=== PATIENT | male | born 1950 | race Caucasian/White ===

== ENCOUNTER 2019-04-05 10:55 | Emergency (ER) | payer OTHER ==
--- NOTE | 2019-04-05 11:44 | ED ---
Adult Trauma - HPI Summary HPI Summary: This patient is a 68-year-old otherwise healthy male presenting to the ED with a probable syncopal episode lasting approximately 2 seconds 1.5 hours prior to arrival. This happened admitting and 10 and he was able to be seen at the [place] clinic who completed an EKG and sent him here for further evaluation of the CT scan. He states when he fell, he tripped after believing he may have "passed out" for approximately 2 seconds, then hitting his head. He denies any LOC after head injury. He denies any headache, visual change, confusion, memory loss. He states he had blood work completed 2 weeks ago including cardiac workup which was normal. He states he has had several episodes of syncope in the past with full workups but nothing has shown anything. He does admit to not having breakfast prior to this episode which has caused him to have these in the past. Denies any symptoms currently, but endorses large cephalohematoma to the L forehead. Also small abrasion to the L eyebrow. Denies weakness, dizziness, CP, SOB or ALEJANDRE. - History of Current Complaint Chief Complaint: EDFall Stated Complaint: FALL FACIAL INJURY Time Seen by Provider: 04/05/19 11:20 Hx Obtained From: Patient Mechanism of Injury: Fall Ambulatory at the Scene: Yes Loss of Consciousness: brief (seconds) - 2 seconds approx Onset/Duration: Started Hours Ago Onset of Pain: Immediate Onset Severity: Mild Current Severity: None Pain Intensity: 0 Pain Scale Used: 0-10 Numeric Location: Head Character: Aching Aggravating Factor(s): Nothing Alleviating Factor(s): Nothing Associated Signs & Symptoms: Positive: Negative - Allergy/Home Medications Allergies/Adverse Reactions: Allergies Allergy/AdvReac Type Severity Reaction Status Date / Time No Known Allergies Allergy Verified 04/05/19 11:04 PMH/Surg Hx/FS Hx/Imm Hx Previously Healthy: Yes - Immunization History Hx Pertussis Vaccination: No Immunizations Up to Date: Yes Infectious Disease History: No Infectious Disease History: Denies: Traveled Outside the [place] in Last 30 Days - Social History Occupation: Unemployed Lives: Alone Alcohol Use: None Hx Substance Use: No Substance Use Type: Reports: None Hx Tobacco Use: No Smoking Status (MU): Never Smoked Tobacco Review of Systems Negative: Fever, Chills, Fatigue, Skin Diaphoresis Negative: Palpitations, Chest Pain Negative: Shortness Of Breath, Cough Genitourinary: Negative Positive: no symptoms reported, see HPI Negative: Arthralgia, Myalgia Skin: Negative Neurological: Negative All Other Systems Reviewed And Are Negative: Yes Physical Exam Triage Information Reviewed: Yes Vital Signs On Initial Exam: Initial Vitals Temp Pulse Resp BP Pulse Ox 98.3 F 70 16 140/83 98 04/05/19 10:58 04/05/19 10:58 04/05/19 10:58 04/05/19 10:58 04/05/19 10:58 Vital Signs Reviewed: Yes Appearance: Positive: Well-Appearing, Well-Nourished Skin: Positive: Warm, Skin Color Reflects Adequate Perfusion, Other - left sided hematoma Head/Face: Positive: Normal Head/Face Inspection Eyes: Positive: EOMI, VIJAY, Conjunctiva Clear Neck: Positive: Supple, No Lymphadenopathy Respiratory/Lung Sounds: Positive: Clear to Auscultation, Breath Sounds Present Cardiovascular: Positive: RRR, Pulses are Symmetrical in both Upper and Lower Extremities Musculoskeletal: Positive: Normal, Strength/ROM Intact Neurological: Positive: Speech Normal Psychiatric: Positive: Affect/Mood Appropriate AVPU Assessment: Alert Diagnostics - Vital Signs Vital Signs Temp Pulse Resp BP Pulse Ox 04/05/19 10:58 98.3 F 70 16 140/83 98 - Laboratory Lab Statement: Any lab studies that have been ordered have been reviewed, and results considered in the medical decision making process. Adult Trauma Course/Dx - Course Course Of Treatment: During the course of treatment, the patient's evaluated for a recent fall approximately 1.5 hours ago. He denies any symptoms currently. He states he may have had a syncopal episode lasting approximately 2 seconds. He states he has had this several times in the past, has had full workups with no findings. Recent labs were obtained 2 weeks ago including a cardiac workup all of which was negative. EKG was performed at the [place] clinic in which she was seen about 1 hour ago and was normal. He was seen here for a CT. He denies any symptoms currently. Cephalhematoma noted to the left side. No nystagmus noted. No weakness. No gait abnormalities. Patient states he feels 100%. Small abrasion noted to the left eyebrow. CT brain obtained: Shows no intracranial abnormalities. Pt feeling well and denies any complaints at this time. - Diagnoses Differential Diagnosis/HQI/PQRI: Positive: Abrasion(s), Contusion(s), Hematoma(s ) Provider Diagnoses: Hematoma Discharge ED - Sign-Out/Discharge Documenting (check all that apply): Patient Departure Patient Received Moderate/Deep Sedation with Procedure: No - Discharge Plan Condition: Stable Disposition: HOME Patient Education Materials: Head Injury (ED) Referrals: Piper Pastor [Primary Care Provider] - Additional Instructions: Continue follow up at [place] clinic. If you develop any worsening symptoms, return to the ED - Billing Disposition and Condition Condition: STABLE Disposition: Home
[2019-04-05 12:49] VITALS: BP 112/73
== END 2019-04-05 12:51 | disposition home or self-care (01) ==
LOC: ED 10:55
DX: S00.12XA Contusion of left eyelid and periocular area, initial encounter (principal); W01.0XXA Fall on same level from slipping, tripping and stumbling without subsequent striking against object, initial encounter; Y92.9 Unspecified place or not applicable
CPT/HCPCS: 70450; 99282

== ENCOUNTER 2019-04-06 10:40 | Emergency (ER) | payer OTHER ==
[2019-04-06 12:20] VITALS: BP 125/84
--- NOTE | 2019-04-06 12:23 | ED ---
Skin Complaint - HPI Summary HPI Summary: This patient is a 68-year-old male presenting to the ED with left eye ecchymosis. He states he fell yesterday and was seen here in the ED. A CT brain was obtained which shows no intracranial abnormalities. Upon awakening this morning, he states he had some ecchymosis to left eye without swelling. Several hours later he said that ecchymosis was worse. He was able to call the [place] clinic who sent him here for further evaluation of the black eye. He denies any pain to the area. He continues to deny any headache, confusion, memory loss. - History of Current Complaint Chief Complaint: EDEyeProblem Time Seen by Provider: 04/06/19 10:54 Stated Complaint: LT EYE BLACK FROM FALL PER PT Hx Obtained From: Patient Onset/Duration: Started Hours Ago Skin Exposure Onset/Duration: Hours Ago Timing: Constant Onset Severity: Mild Current Severity: Mild Pain Intensity: 0 Pain Scale Used: 0-10 Numeric Skin Location: Discrete - left eye Aggravating Symptom(s): Nothing Alleviating Symptom(s): Nothing Associated Signs & Symptoms: Negative - Allergy/Home Medications Allergies/Adverse Reactions: Allergies Allergy/AdvReac Type Severity Reaction Status Date / Time No Known Allergies Allergy Verified 04/05/19 11:04 PMH/Surg Hx/FS Hx/Imm Hx Previously Healthy: Yes - Immunization History Hx Pertussis Vaccination: No Immunizations Up to Date: Yes Infectious Disease History: No Infectious Disease History: Denies: Traveled Outside the [place] in Last 30 Days - Social History Occupation: Unemployed Lives: Alone Alcohol Use: None Hx Substance Use: No Substance Use Type: Reports: None Hx Tobacco Use: No Smoking Status (MU): Never Smoked Tobacco Review of Systems Constitutional: Negative Negative: Fever, Chills, Fatigue, Skin Diaphoresis Negative: Palpitations, Chest Pain Negative: Shortness Of Breath, Cough Positive: see HPI Negative: Arthralgia, Myalgia Positive: Bruising Neurological: Negative Negative: Headache, Weakness, Paresthesia, Numbness All Other Systems Reviewed And Are Negative: Yes Physical Exam Triage Information Reviewed: Yes Vital Signs On Initial Exam: Initial Vitals Temp Pulse Resp BP Pulse Ox 97.5 F 75 16 128/89 98 04/06/19 10:44 04/06/19 10:44 04/06/19 10:44 04/06/19 10:44 04/06/19 10:44 Vital Signs Reviewed: Yes Appearance: Positive: Well-Appearing, Well-Nourished Skin: Positive: Warm, Other - ecchymosis to the upper eyelid Head/Face: Positive: Normal Head/Face Inspection Eyes: Positive: EOMI, VIJAY, Conjunctiva Clear Neck: Positive: Supple, Nontender Respiratory/Lung Sounds: Positive: Clear to Auscultation, Breath Sounds Present Cardiovascular: Positive: RRR, Pulses are Symmetrical in both Upper and Lower Extremities Musculoskeletal: Positive: Normal, Strength/ROM Intact Neurological: Positive: Speech Normal Psychiatric: Positive: Affect/Mood Appropriate Diagnostics - Vital Signs Vital Signs Temp Pulse Resp BP Pulse Ox 04/06/19 10:44 97.5 F 75 16 128/89 98 - Laboratory Lab Statement: Any lab studies that have been ordered have been reviewed, and results considered in the medical decision making process. Course/Dx - Course Course Of Treatment: During the course of treatment, patient is evaluated for ecchymosis left eye following a fall yesterday. He denies any swelling or pain. He states he was sent here from the [place] clinic to reevaluate the ecchymosis. He denies the use blood thinners. Physical examination, there is a small amount of ecchymosis to the upper lid of the left eye without swelling. No occlusion to the eye. No eye entrapment noted. No conjunctival injection or hemorrhage. Patient will be discharged with hematoma. - Diagnoses Provider Diagnoses: Hematoma Discharge ED - Sign-Out/Discharge Documenting (check all that apply): Patient Departure Patient Received Moderate/Deep Sedation with Procedure: No - Discharge Plan Condition: Stable Disposition: HOME Patient Education Materials: Hematoma (ED) Referrals: Piper Pastor [Primary Care Provider] - Additional Instructions: Ice to the area may help with swelling and blood pooling - Billing Disposition and Condition Condition: STABLE Disposition: Home
== END 2019-04-06 12:18 | disposition home or self-care (01) ==
LOC: ED 10:40
DX: S00.12XA Contusion of left eyelid and periocular area, initial encounter (principal); W19.XXXA Unspecified fall, initial encounter; Y92.9 Unspecified place or not applicable
CPT/HCPCS: 99282

== ENCOUNTER 2022-03-03 15:10 | Inpatient (IN) ==
[2022-03-03] MEDS ORDERED: Morphine 4 MG/ML VIAL (1 ml) IV ONE ×2 (15:29→17:21)
[2022-03-03 16:44] LABS: ABS Basophils 0.1 10^3/ul (0-0.2); ABS Eosinophils 0.4 10^3/ul (0-0.6); ABS Lymphocytes 1.2 10^3/ul (1.0-4.8); ABS Monocytes 0.5 10^3/ul (0-0.8); ABS Neutrophils 5.3 10^3/ul (1.5-7.7); Eosinophil % 5.1 %; Hematocrit 40 % (42-52); Hemoglobin 13.4 g/dL (14.0-18.0); Lymphocyte % 16.5 %; Mean Corpuscular HGB Conc 33 g/dL (31-36); Mean Corpuscular Hemoglobin 32 pg (27-31); Mean Corpuscular Volume 95 fL (80-94); Mean Platelet Volume 8.3 fL (7.4-10.4); Nucleated Red Blood Cells % 0.1; Platelet Count 223 10^3/uL (150-450); Red Blood Count 4.22 10^6 /uL (4.18-5.48); Red Cell Distribution Width 15 % (10-15); White Blood Count 7.5 10^3/uL (3.5-10.8)
[2022-03-03 17:24] LABS: Albumin 4.2 g/dL (3.2-5.2); Albumin/Globulin Ratio 1.9 (1-3); Calcium 9.3 mg/dL (8.6-10.3); Globulin 2.2 g/dL (2-4); Potassium 4.5 mmol/L (3.5-5.0); Total Bilirubin 1.3 mg/dL (0.2-1.0); Total Protein 6.4 g/dL (6.4-8.9); eGFR CKD-EPI 52.6 (>60)
[2022-03-03] MEDS ORDERED: Iodixanol (CONTRAST) 320 MG/ML 100 ML SDV IV ONE (17:41)
[2022-03-03 20:26] LABS: Urine Appearance Clear; Urine Bilirubin Negative (Negative); Urine Blood Negative (Negative); Urine Color Yellow; Urine Glucose Negative (Negative); Urine Ketones Negative (Negative); Urine Nitrite Negative (Negative); Urine Protein Negative (Negative); Urine Urobilinogen 0.2 (Negative) (Negative); Urine pH 6.5 (5.0-9.0)
[2022-03-03] MEDS ORDERED: BETAMETHASONE DIPROPIONATE 0.05% TOPICAL PRN (20:39)
[2022-03-03] MEDS: dilTIAZem 30 MG TAB PO SCH (22:22)
[2022-03-03] MEDS: Heparin 5000 UNITS/ML 1 mL VIAL SUBCUT SCH (22:25)
[2022-03-04] MEDS: Mometasone/Formoter 100/5 MDI INH SCH ×3 (01:17→20:07)
[2022-03-04 04:34] LABS: Hematocrit 39 % (42-52); Hemoglobin 12.9 g/dL (14.0-18.0)
[2022-03-04 04:54] LABS: Hepatitis C Antibody Negative (Negative)
[2022-03-04 05:07] LABS: Calcium 9.3 mg/dL (8.6-10.3); Potassium 4.3 mmol/L (3.5-5.0)
[2022-03-04 06:59] LABS: ABS Basophils 0.1 10^3/ul (0-0.2); ABS Eosinophils 0.5 10^3/ul (0-0.6); ABS Lymphocytes 0.7 10^3/ul (1.0-4.8); ABS Monocytes 0.5 10^3/ul (0-0.8); ABS Neutrophils 3.9 10^3/ul (1.5-7.7); Eosinophil % 8.4 %; Hematocrit 36 % (42-52); Hemoglobin 12.2 g/dL (14.0-18.0); Lymphocyte % 13.3 %; Mean Corpuscular HGB Conc 34 g/dL (31-36); Mean Corpuscular Hemoglobin 33 pg (27-31); Mean Corpuscular Volume 96 fL (80-94); Mean Platelet Volume 8.5 fL (7.4-10.4); Platelet Count 189 10^3/uL (150-450); Red Blood Count 3.72 10^6 /uL (4.18-5.48); Red Cell Distribution Width 14 % (10-15); White Blood Count 5.6 10^3/uL (3.5-10.8)
[2022-03-04] MEDS: Heparin 5000 UNITS/ML 1 mL VIAL SUBCUT SCH (09:36)
[2022-03-04] MEDS ORDERED: Heparin DRIP 25,000 UNITS BAG 25,000 UNITS/500 ML BAG IV SCH (10:15)
[2022-03-04 10:19] LABS: ABS Eosinophils 0.5 10^3/ul (0-0.6); ABS Lymphocytes 0.8 10^3/ul (1.0-4.8); ABS Monocytes 0.4 10^3/ul (0-0.8); ABS Neutrophils 3.5 10^3/ul (1.5-7.7); Eosinophil % 9.5 %; Hematocrit 38 % (42-52); Hemoglobin 12.7 g/dL (14.0-18.0); Lymphocyte % 15.6 %; Mean Corpuscular HGB Conc 33 g/dL (31-36); Mean Corpuscular Hemoglobin 32 pg (27-31); Mean Corpuscular Volume 96 fL (80-94); Mean Platelet Volume 8.6 fL (7.4-10.4); Platelet Count 202 10^3/uL (150-450); Red Blood Count 3.98 10^6 /uL (4.18-5.48); Red Cell Distribution Width 15 % (10-15); White Blood Count 5.3 10^3/uL (3.5-10.8)
[2022-03-04] MEDS: SPIRIVA Respimat (tiotropium) 2.5 mcg/inh Inhaler INH SCH (10:22)
[2022-03-04 10:48] LABS: eGFR CKD-EPI 48.9 (>60)
[2022-03-04] MEDS: dilTIAZem 30 MG TAB PO SCH ×3 (10:52→23:29)
[2022-03-04] MEDS ORDERED: Heparin 5000 UNITS/ML 1 mL VIAL IV SCH (11:00)
[2022-03-04] MEDS ORDERED: Morphine 2 MG/ML SYRINGE IV PRN (11:59)
[2022-03-04] MEDS: Acetaminophen IV 1 GM/100ML 1,000 MG/100 ML BAG IV SCH ×2 (12:16→18:43)
[2022-03-04 14:43] LABS: Hematocrit 37 % (42-52)
[2022-03-04] MEDS ORDERED: fentaNYL 250 mcg/5 ml 50 MCG/ML 5 ml VIAL (250 MCG) ONE (16:01)
[2022-03-04] MEDS ORDERED: Heparin 2 UNITS/ML 1000 mls 1,000 ML IV ONE (16:20)
[2022-03-04 18:02] LABS: Hematocrit 38 % (42-52); Hemoglobin 12.2 g/dL (14.0-18.0)
[2022-03-04 22:09] LABS: Hematocrit 36 % (42-52); Hemoglobin 11.9 g/dL (14.0-18.0)
[2022-03-05] MEDS: Acetaminophen IV 1 GM/100ML 1,000 MG/100 ML BAG IV SCH ×3 (01:58→18:38)
[2022-03-05 02:05] LABS: Hematocrit 34 % (42-52); Hemoglobin 11.6 g/dL (14.0-18.0)
[2022-03-05 05:01] LABS: ABS Eosinophils 0.5 10^3/ul (0-0.6); ABS Lymphocytes 0.8 10^3/ul (1.0-4.8); ABS Monocytes 0.6 10^3/ul (0-0.8); ABS Neutrophils 4.4 10^3/ul (1.5-7.7); Eosinophil % 8.5 %; Hematocrit 33 % (42-52); Hemoglobin 11.2 g/dL (14.0-18.0); Lymphocyte % 12.8 %; Mean Corpuscular HGB Conc 34 g/dL (31-36); Mean Corpuscular Hemoglobin 32 pg (27-31); Mean Corpuscular Volume 96 fL (80-94); Platelet Count 182 10^3/uL (150-450); Red Blood Count 3.46 10^6 /uL (4.18-5.48); Red Cell Distribution Width 14 % (10-15); White Blood Count 6.4 10^3/uL (3.5-10.8)
[2022-03-05 05:44] LABS: Albumin 3.5 g/dL (3.2-5.2); Albumin/Globulin Ratio 1.8 (1-3); Calcium 8.5 mg/dL (8.6-10.3); Magnesium 1.7 mg/dL (1.9-2.7); Potassium 3.8 mmol/L (3.5-5.0); Total Protein 5.5 g/dL (6.4-8.9); eGFR CKD-EPI 56.8 (>60)
[2022-03-05] MEDS ORDERED: Magnesium Sulfate 2 gm BAG 2 GM/50 ML BAG IVPB ONE (06:55)
[2022-03-05] MEDS: Mometasone/Formoter 100/5 MDI INH SCH ×2 (08:02→19:11)
[2022-03-05] MEDS: SPIRIVA Respimat (tiotropium) 2.5 mcg/inh Inhaler INH SCH (08:02)
[2022-03-05] MEDS ORDERED: Mineral Oil ENEMA 118 ML/BOTTLE BOTTLE PR ONE (10:02)
[2022-03-05] MEDS: dilTIAZem 30 MG TAB PO SCH ×3 (11:22→21:42)
[2022-03-05] MEDS ORDERED: Iodixanol (CONTRAST) 320 MG/ML 100 ML SDV IV ONE (12:18)
[2022-03-05] MEDS ORDERED: Lactated Ringers 1000 ml BAG 1,000 ML IV ONE ×2 (14:04→14:05)
[2022-03-05 16:17] LABS: Hematocrit 35 % (42-52); Hemoglobin 11.5 g/dL (14.0-18.0)
[2022-03-06] MEDS: Acetaminophen IV 1 GM/100ML 1,000 MG/100 ML BAG IV SCH ×2 (04:41→09:17)
[2022-03-06 06:08] LABS: ABS Eosinophils 0.7 10^3/ul (0-0.6); ABS Lymphocytes 1.1 10^3/ul (1.0-4.8); ABS Monocytes 0.6 10^3/ul (0-0.8); ABS Neutrophils 4.3 10^3/ul (1.5-7.7); Eosinophil % 10.7 %; Hematocrit 29 % (42-52); Lymphocyte % 16.6 %; Mean Corpuscular HGB Conc 34 g/dL (31-36); Mean Corpuscular Hemoglobin 33 pg (27-31); Mean Corpuscular Volume 97 fL (80-94); Mean Platelet Volume 9.2 fL (7.4-10.4); Nucleated Red Blood Cells % 0.1; Platelet Count 169 10^3/uL (150-450); Red Blood Count 3.03 10^6 /uL (4.18-5.48); Red Cell Distribution Width 15 % (10-15); White Blood Count 6.9 10^3/uL (3.5-10.8)
[2022-03-06 06:28] LABS: Calcium 8.4 mg/dL (8.6-10.3); Magnesium 2.1 mg/dL (1.9-2.7); Potassium 4.1 mmol/L (3.5-5.0); eGFR CKD-EPI 54.9 (>60)
[2022-03-06] MEDS: dilTIAZem 30 MG TAB PO SCH (08:30)
[2022-03-06] MEDS: Mometasone/Formoter 100/5 MDI INH SCH (08:37)
[2022-03-06] MEDS: SPIRIVA Respimat (tiotropium) 2.5 mcg/inh Inhaler INH SCH (08:38)
[2022-03-06] MEDS ORDERED: Magnesium Hydroxide LIQ 30 ML UDC PO ONE (08:55)
[2022-03-06 11:12] VITALS: BP 121/74
== END 2022-03-06 14:35 | disposition home or self-care (01) | DRG 604 ==
LOC: ED 15:10 → SUATTDRO 20:17 → EDHOLD 20:17 → SSU 03-04 00:29
PROVIDERS: ADMIT Internal Medicine; ATTEND Student in an Organized Health Care Education/Training Program

== ENCOUNTER 2024-07-25 | Inpatient (IN) ==
[2024-07-25] MEDS: Iodixanol 320 (CONTRAST) 100 ML SDV IV ONE (00:46)
[2024-07-25 00:51] LABS: Activated Partial Thrombo Time 31.3 seconds (26.0-38.0); INR 1.28 (0.85-1.14)
[2024-07-25 00:58] LABS: Urine Appearance Clear; Urine Bilirubin Negative (Negative); Urine Blood Negative (Negative); Urine Color Yellow; Urine Glucose Negative (Negative); Urine Ketones Negative (Negative); Urine Nitrite Negative (Negative); Urine Protein Trace (Negative); Urine Specific Gravity 1.017 (1.002-1.030); Urine Urobilinogen Negative (Negative); Urine pH 5.5 (5.0-8.0)
[2024-07-25 01:02] LABS: ABS Basophils 0.1 10^3/uL (0.0-0.1); ABS Eosinophils 0.6 10^3/uL (0.0-0.5); ABS Lymphocytes 1.7 10^3/uL (1.0-4.8); ABS Monocytes 0.6 10^3/uL (0.0-1.1); ABS Neutrophils 5.2 10^3/uL (1.5-7.6); Eosinophil % 7.2 %; Hematocrit 42.1 % (38-53); Hemoglobin 14.3 g/dL (13.2-16.3); Lymphocyte % 21.4 %; Mean Corpuscular Hemoglobin 31.7 pg (27-33); Mean Corpuscular Hgb Conc 33.9 g/dL (31-36); Mean Corpuscular Volume 93.6 fL (80-97); Mean Platelet Volume 8.5 fL (7.5-11.2); Nucleated Red Blood Cells % 0.1 %/100WBC (0.0-0.8); Platelet Count 240 10^3/uL (150-450); Red Cell Distribution Width 14.5 % (12-17); White Blood Count 8.1 10^3/uL (3.6-10.2)
[2024-07-25 01:18] LABS: Albumin 4.1 g/dL (3.5-5.7); Calcium 8.9 mg/dL (8.6-10.3); Creatinine, Serum 1.79 mg/dL (0.67-1.17); Direct Bilirubin 0.1 mg/dL (0.03-0.18); Globulin 2.1 g/dL (2-4); Indirect Bilirubin 0.5 mg/dL (0.3-1.0); Potassium 3.9 mmol/L (3.5-5.0); Total Bilirubin 0.6 mg/dL (0.2-1.0); Total Protein 6.2 g/dL (6.4-8.9); eGFR CKD-EPI 39.8 (>60)
[2024-07-25] MEDS ORDERED: TERBINAFINE HCL 1% TOPICAL PRN (02:39)
[2024-07-25] MEDS ORDERED: Albuterol HFA INHALER 8 gm MDI INH PRN (02:39)
[2024-07-25 07:04] LABS: Calcium 8.8 mg/dL (8.6-10.3); Creatinine, Serum 1.71 mg/dL (0.67-1.17); Potassium 3.9 mmol/L (3.5-5.0)
[2024-07-25] MEDS: Mometasone 220 MCG MDI INH SCH (11:51)
[2024-07-25] MEDS: Tiotropium Brom/Olodaterol MDI (ACUTE) INH SCH (11:51)
[2024-07-25] MEDS: Fluticasone NASAL SPRAY 50MCG 16 gm SPRAY BTL INTRANASAL SCH (11:52)
[2024-07-26 06:14] LABS: Hematocrit 40.1 % (38-53); Hemoglobin 13.3 g/dL (13.2-16.3); Mean Corpuscular Hemoglobin 31.5 pg (27-33); Mean Corpuscular Hgb Conc 33.3 g/dL (31-36); Mean Corpuscular Volume 94.6 fL (80-97); Mean Platelet Volume 9.1 fL (7.5-11.2); Platelet Count 214 10^3/uL (150-450); Red Blood Count 4.24 10^6/uL (4.06-5.63); Red Cell Distribution Width 14.8 % (12-17); White Blood Count 5.9 10^3/uL (3.6-10.2)
[2024-07-26 06:28] LABS: Calcium 8.5 mg/dL (8.6-10.3); Creatinine, Serum 1.84 mg/dL (0.67-1.17); Magnesium 1.8 mg/dL (1.9-2.7); Potassium 4.1 mmol/L (3.5-5.0); eGFR CKD-EPI 38.5 (>60)
[2024-07-26] MEDS: Gadoteridol (CONTRAST) 279.3 MG/ML 10 ML IV ONE (15:44)
[2024-07-26] MEDS: Magnesium Sulfate IV 1GM/100ML 1 GM/100 ML BAG IV ONE (16:45)
[2024-07-27 06:08] LABS: Calcium 9.1 mg/dL (8.6-10.3); Creatinine, Serum 1.48 mg/dL (0.67-1.17); Potassium 3.8 mmol/L (3.5-5.0)
[2024-07-27] MEDS: Sulfur Hexaflouride MICROSPHR 25 MG VIAL IV PRN (11:10)
[2024-07-29 06:46] LABS: Creatinine, Serum 1.45 mg/dL (0.67-1.17); Magnesium 1.7 mg/dL (1.9-2.7); Potassium 4.1 mmol/L (3.5-5.0); eGFR CKD-EPI 51.2 (>60)
[2024-07-29] MEDS: Magnesium Sulfate 2 gm BAG 2 GM/50 ML BAG IVPB ONE (08:22)
[2024-07-29] MEDS ORDERED: Heparin 5000 UNITS/ML 1 mL VIAL IV SCH (13:00)
[2024-07-29] MEDS: Heparin DRIP 25,000 UNITS BAG 25,000 UNITS/250 ML BAG IV SCH (13:29)
[2024-07-29 13:40] LABS: ABS Basophils 0.1 10^3/uL (0.0-0.1); ABS Eosinophils 0.6 10^3/uL (0.0-0.5); ABS Lymphocytes 1.9 10^3/uL (1.0-4.8); ABS Monocytes 0.4 10^3/uL (0.0-1.1); ABS Neutrophils 4.2 10^3/uL (1.5-7.6); Eosinophil % 8.5 %; Hematocrit 42.8 % (38-53); Hemoglobin 14.2 g/dL (13.2-16.3); Lymphocyte % 26.5 %; Mean Corpuscular Hemoglobin 31.5 pg (27-33); Mean Corpuscular Hgb Conc 33.2 g/dL (31-36); Mean Corpuscular Volume 94.9 fL (80-97); Mean Platelet Volume 8.5 fL (7.5-11.2); Nucleated Red Blood Cells % 0.1 %/100WBC (0.0-0.8); Platelet Count 236 10^3/uL (150-450); Red Blood Count 4.51 10^6/uL (4.06-5.63); Red Cell Distribution Width 15.2 % (12-17); White Blood Count 7.2 10^3/uL (3.6-10.2)
[2024-07-29 14:13] LABS: Creatinine, Serum 1.6 mg/dL (0.67-1.17); eGFR CKD-EPI 45.5 (>60)
[2024-07-30 06:13] LABS: ABS Basophils 0.1 10^3/uL (0.0-0.1); ABS Eosinophils 0.7 10^3/uL (0.0-0.5); ABS Lymphocytes 2.4 10^3/uL (1.0-4.8); ABS Monocytes 0.4 10^3/uL (0.0-1.1); ABS Neutrophils 3.5 10^3/uL (1.5-7.6); Eosinophil % 10.6 %; Hematocrit 40.4 % (38-53); Hemoglobin 13.8 g/dL (13.2-16.3); Lymphocyte % 33.3 %; Mean Corpuscular Hemoglobin 32.3 pg (27-33); Mean Corpuscular Volume 94.9 fL (80-97); Mean Platelet Volume 9.1 fL (7.5-11.2); Nucleated Red Blood Cells % 0.1 %/100WBC (0.0-0.8); Platelet Count 235 10^3/uL (150-450); Red Blood Count 4.26 10^6/uL (4.06-5.63); Red Cell Distribution Width 14.6 % (12-17); White Blood Count 7.1 10^3/uL (3.6-10.2)
[2024-07-30 09:27] LABS: Calcium 9.1 mg/dL (8.6-10.3); Creatinine, Serum 1.72 mg/dL (0.67-1.17); Potassium 4.6 mmol/L (3.5-5.0); eGFR CKD-EPI 41.7 (>60)
[2024-07-31 06:16] LABS: Calcium 9.6 mg/dL (8.6-10.3); Creatinine, Serum 1.7 mg/dL (0.67-1.17); Magnesium 1.8 mg/dL (1.9-2.7); Potassium 4.1 mmol/L (3.5-5.0); eGFR CKD-EPI 42.3 (>60)
[2024-07-31 13:53] VITALS: BP 113/99
== END 2024-07-31 16:52 | disposition home or self-care (01) | DRG 64 ==
LOC: ED → EDHOLD → MEDTELE 08:18
PROVIDERS: ADMIT Hospitalist; ATTEND Hospitalist